=== PATIENT | female | born 1965 | race Caucasian/White ===

== ENCOUNTER 2021-06-10 06:47 | Day surgery (SDC) | payer OTHER ==
[2021-06-10] MEDS ORDERED: Midazolam 1 MG/ML 2 ML SDV ONE (07:38)
[2021-06-10] MEDS ORDERED: fentaNYL 100 MCG/2 ML SDV ONE (07:38)
[2021-06-10] MEDS ORDERED: Propofol 200 MG/20 ML SDV ONE (07:39)
[2021-06-10] MEDS ORDERED: Dextrose 5%-Lactated Ringers 1,000 ML IV SCH (08:15)
--- NOTE | 2021-06-28 09:57 | OR ---
DATE OF PROCEDURE: 06/10/2021 SURGEON: Adolfo Vizcaino MD PREOPERATIVE DIAGNOSIS: Indications for screening colonoscopy. POSTOPERATIVE DIAGNOSIS: Normal colonoscopic examination. OPERATIVE PROCEDURE: Flexible colonoscopy. ANESTHESIA: IV sedation. INDICATIONS FOR PROCEDURE: This is a 56-year-old female presenting for a screening colonoscopy. She has neither a family or personal history of colonic neoplasia. Plan is to proceed with a colonoscopy with biopsies and/or polypectomy as indicated. Potential risks of the procedure including bleeding and perforation were discussed, and the patient wishes to proceed. DETAILS OF PROCEDURE: The patient was taken to the operating room and placed in a left lateral decubitus position. IV sedation was administered after which the initial digital rectal exam was performed and was unremarkable. Colonoscope was then passed into the rectum with retroflexion revealing uncomplicated hemorrhoidal columns. Scope was eventually passed to the level of the cecum. The prep was quite good. There was only a small amount of liquid stool present to that level. There was no diverticular disease. No areas of colitis. No polyps or other signs of neoplasia. Scope was then withdrawn. The above findings reconfirmed. The procedure was then concluded. With the lack of personal and family history of colon neoplasia and normal examination, the next colonoscopy should be considered in 10 years. Adolfo Vizcaino MD /[id number]
== END 2021-06-10 10:20 | disposition home or self-care (01) ==
LOC: JP.SDS 06:47
PROVIDERS: ATTEND Surgery
DX: Z12.11 Encounter for screening for malignant neoplasm of colon (principal); K64.9 Unspecified hemorrhoids
CPT/HCPCS: 45378; J2250; J2704; J3010; J7121